=== PATIENT | female | born 1960 | race African-American/Black ===

== ENCOUNTER → 2016-06-07 | Outpatient (REF) ==
--- NOTE | 2016-06-07 10:17 | DI ---
Examination: Two radiographic images of the chest. Comparison: 05/23/2014. [facility] FINDINGS: No pneumothorax, pleural effusion, or focal consolidation. Likely a new granulomatous di sease in the right lung base. The cardiac silhouette is not enlarged. Impression: 1. Likely granulomatous disease in the right lung base slightly more prominent on today's examinati on. Recommend attention to this region on follow up imaging. 2. No acute cardiopulmonary findings.
== END ==
LOC: RAD 09:11
DX: Z02.89 Encounter for other administrative examinations (principal)